=== PATIENT | female | born 1940 | race Caucasian/White ===

== ENCOUNTER → 2018-11-24 13:06 | Outpatient (CLI) | payer MEDICARE, OTHER, SELFPAY ==
--- NOTE | 2018-11-24 | DI.MG.S_ITS ---
UNILATERAL RIGHT DIGITAL SCREENING MAMMOGRAM 3D/2D WITH CAD POST MASTECTOMY: 11/24/2018 CLINICAL: Routine screening. Personal history of left breast cancer. Family history of breast cancer. Comparison is made to exams dated: 06/28/2017 mammogram, 06/20/2017 mammogram, 01/23/2015 mammogram, and 05/29/2013 mammogram - [facility]. The tissue of right breast is predominantly fatty. Current study was also evaluated with a Computer Aided Detection (CAD) system. There is a mole marker on the right breast. No significant masses, calcifications, or other findings are seen in the breast. There has been no significant interval change. IMPRESSION: NEGATIVE There is no mammographic evidence of malignancy. A 1 year screening mammogram is recommended. This exam was interpreted at Station ID: [id number]. NOTE: For mammograms, a report in lay terms will be sent to the patient. Approximately 15% of breast malignancies will not be visualized mammographically. In the management of a palpable breast mass, a negative mammogram must not discourage biopsy of a clinically suspicious lesion. Electronically Signed By: Chandu gant/gina:11/24/2018 20:13:18 letter sent: Normal Exam ACR BI-RADS Category 1: Negative 3341F
== END ==
PROVIDERS: Family Provider Family Medicine; PCP Family Medicine; Visit Provider Family Medicine
DX: Z12.31 Encounter for screening mammogram for malignant neoplasm of breast (principal); Z85.3 Personal history of malignant neoplasm of breast; Z80.3 Family history of malignant neoplasm of breast
CPT/HCPCS: 77063; 77067

== ENCOUNTER → 2020-03-17 10:21 | Outpatient (CLI) | payer MEDICARE, OTHER, SELFPAY ==
--- NOTE | 2020-03-17 10:45 | DI.MG.S_ITS ---
Patient Name: VIC MCGHEE date: 1940 Sex: F Attending Physician: Devonte Indications: Date: 03/17/2020 10:40 At the request of: LUIS ANGEL GIL Procedure: MM screening mammo unilat RT UNILATERAL RIGHT DIGITAL SCREENING MAMMOGRAM 3D/2D WITH CAD POST MASTECTOMY: 03/17/2020 CLINICAL: Routine screening. Personal history of left breast cancer. Family history of breast cancer. Comparison is made to exams dated: 11/24/2018 mammogram - [facility], 07/08/2017 mammogram, and 06/28/2017 mammogram - [facility]. The tissue of right breast is predominantly fatty. Current study was also evaluated with a Computer Aided Detection (CAD) system. No significant masses, calcifications, or other findings are seen in the breast. There has been no significant interval change. IMPRESSION: NEGATIVE There is no mammographic evidence of malignancy. A 1 year screening mammogram is recommended. This exam was interpreted at Station ID: [id number]. NOTE: For mammograms, a report in lay terms will be sent to the patient. Approximately 15% of breast malignancies will not be visualized mammographically. In the management of a palpable breast mass, a negative mammogram must not discourage biopsy of a clinically suspicious lesion. Electronically Signed By: Pato Camara M.D., jr/gina:03/17/2020 12:33:18 letter sent: Normal Exam ACR BI-RADS Category 1: Negative 3341F
== END ==
PROVIDERS: Family Provider Family Medicine; PCP Family Medicine; Referring Provider Family Medicine; Visit Provider Family Medicine
DX: Z12.31 Encounter for screening mammogram for malignant neoplasm of breast (principal); Z85.3 Personal history of malignant neoplasm of breast; Z80.3 Family history of malignant neoplasm of breast
CPT/HCPCS: 77063; 77067

== ENCOUNTER 2021-02-18 07:24 | Day surgery (SDC) | payer MEDICARE, OTHER, SELFPAY ==
--- NOTE | 2021-02-17 17:56 | PM.PREOP ---
Pre-operative Note COVID-19 COVID-19 status: Negative Interval Note History & Physical reviewed/Exam performed by Physician: Yes Changes to H&P: No H&P completed within 30 days and has changed as indicated here:: Fasting glucose is 127. Patient has redness of the left lower lid so will be given IV Cefazolin prior to surgery and placed on doxycycline 100 mg bid for 10 days. there is no discharge and can proceed with surgery.Rx to patient.
--- NOTE | 2021-02-18 07:39 | PM.OP.1 ---
Operative Date/Time/Diagnoses Date of procedure: 02/18/21 Time of procedure: 08:45 Procedure & Clinicians Procedure: Preoperative diagnoses: 1. Left advanced nuclear sclerotic and cortical cataract. 2. History of diabetic retinopathy with intravitreal Avastin injection. None since 2015. 3. Diabetes. 4. 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 5. History of breast cancer with mastectomy. 6. History of scalp melanoma status post removal Postoperative diagnoses: 1. Cataract removed by phacoemulsification with placement of posterior chamber intraocular lens. Procedure: Phacoemulsification with posterior chamber intraocular lens implant Surgeon: Raquel Harris MD Complications: None Specimen: None Implant: DIBOO+20.0 Blood loss: None Anesthesia: Retrobulbar with monitored standby Description of procedure: Patient presents with a complaint of decreased vision due to cataract which is affecting activities of daily living both distance and. The patient wants surgery to improve vision. She has traveled from [place] in and noted this morning that her left lower eyelid was slightly red. On exam is shows some internal lid inflammation no eye inflammation and no discharge. She is at risk to develop a show lazy and so she will be placed on antibiotics pre surgery and post surgery but appears safe to proceed. Her fasting glucose is 127. She understands the extra risk of surgery during the COVID-19 epidemic and has tested negative within 72 hours of the surgery for active virus. The patient was taken to the operating room and given IV sedation. A retrobulbar block consisting of 6 cc of 2% xylocaine without epinephrine mixed half and half with 0.5% Marcaine with 1 cc of hyaluronidase added is placed between the medial and lateral 1/3 of the inferior orbital rim. The eye is manually massaged for 30 sec, prepped using Betadine solution, and draped in the usual sterile fashion. Temporal approach was made, a 1 mm side-port incision was made 90? from the proposed clear corneal incision position. Phenylephrine 1.5% mixed with 1% xylocaine 0.2 cc was placed into the anterior chamber. Viscoat followed by Ajay was then placed. A 2.6 mm clear incision with a 2.6 mm blade was placed. A 360 degree capsulorrhexis style capsulotomy was then performed with a cystitome needle on a Healon. Hydrodelineation and hydrodissection were performed. The phacoemulsification unit is introduced, and sculpting notice used to groove the central lens. It is then removed in chopping mode. Epi nucleus is removed with epinuclear mode and irrigation aspiration was used to remove the peripheral cortex. The posterior capsule is polished. The intraocular lens is selected, inspected, power confirmed, and placed in the posterior chamber. The wound was stromally hydrated and tested for leaks, there was none and it was left sutureless. Vigamox 0.1 cc was placed into the anterior chamber. Kenalog 0.2 cc was placed in the superior subconjunctival space. A drop of antibiotic and was placed and the eye was patched and shielded. The patient was stable and returned to the recovery room in excellent condition. Dictated by: Raquel Harris MD Copy to: [facility] Same procedure as scheduled: Yes
[2021-02-18] MEDS: PROPARACAINE 0.5% OPHTH SOL 2 DROPS EYE-OP (07:53)
[2021-02-18] MEDS: CATARACT EYE COMPOUND (10 DROPS/SYRINGE) 3 DROPS EYE-OP ×2 (07:53→08:04)
--- NOTE | 2021-02-18 08:02 | SUR.PREOP ---
0757 Patient showed that she had awoken with redness and swelling under left eye. Dr Harris examined eye and determined that we can proceed with surgery. Drops initiated. Patient handed off to Karlene Harris RN
[2021-02-18 08:03] VITALS: BP 180/71; PULSE 66; RESP 14; TEMP 36.3; O2SAT 100; BMI 24.8
[2021-02-18] MEDS: CEFAZOLIN 1 GM VIAL 2 GM IV (09:00)
[2021-02-18] MEDS: CHONDROIDTIN/SOD HYALURONATE 1.05 ML SYRINGE INTRAOCULA (09:09)
[2021-02-18] MEDS: ERYTHROMYCIN OPHTH 1 GM OINT 1 APPLIC EYE-LEFT (09:09)
[2021-02-18] MEDS: MOXIFLOXACIN INJ 4 MG/0.8 ML VIAL 0.5 MG EYE-OP (09:10)
[2021-02-18] MEDS: HYALURONATE SODIUM 10 MG/ML SYRINGE INJ (09:10)
[2021-02-18] MEDS: PHENYLEPHRINE/LIDOCAINE VIAL (OR) 0.2 ML EYE-OP (09:10)
[2021-02-18] MEDS: TRIAMCINOLONE 50 MG/5 ML VIAL INJ (09:11)
[2021-02-18] MEDS: LIDOCAINE 2% INJ SDV 5 ML INJ (09:13)
[2021-02-18] MEDS: LIDOCAINE 2% 4 ML, BUPIVACAINE 0.5% (PF) 4 ML, HYALURONIDASE 150 UNIT INJ (09:13)
[2021-02-18] MEDS: BALANCED SALT IRRIG SOLN NO.2 500 ML, EPINEPHrine 1 MG IRR (09:15)
[2021-02-18 09:41] VITALS: BP 142/66; PULSE 58; RESP 14; TEMP 36.7; O2SAT 58
== END 2021-02-18 09:53 | disposition home or self-care (01) ==
LOC: OR 07:25
PROVIDERS: Family Provider Family Medicine; PCP Family Medicine; Referring Provider Ophthalmology; Visit Provider Ophthalmology
PROC: (CPT 66984; principal; 2021-02-18 08:45)
DX: H25.812 Combined forms of age-related cataract, left eye (principal); E11.9 Type 2 diabetes mellitus without complications
CPT/HCPCS: 66984; J0171; J0690; J2250; J2704; J3010; J3301; J3470

== ENCOUNTER → 2021-07-14 10:50 | Outpatient (CLI) | payer MEDICARE, OTHER, SELFPAY ==
--- NOTE | 2021-07-14 | DI.MG.S_ITS ---
UNILATERAL RIGHT DIGITAL SCREENING MAMMOGRAM 3D/2D WITH CAD: 07/14/2021 CLINICAL: Routine screening. Personal history of left breast cancer. Family history of breast cancer. Comparison is made to exams dated: 03/17/2020 mammogram, 11/24/2018 mammogram - [facility], and 07/08/2017 mammogram - [facility]. There are scattered fibroglandular elements in right breast. Current study was also evaluated with a Computer Aided Detection (CAD) system. No significant masses, calcifications, or other findings are seen in the breast. There has been no significant interval change. IMPRESSION: NEGATIVE There is no mammographic evidence of malignancy. A 1 year screening mammogram is recommended. This exam was interpreted at Station ID: [id number]. NOTE: For mammograms, a report in lay terms will be sent to the patient. Approximately 15% of breast malignancies will not be visualized mammographically. In the management of a palpable breast mass, a negative mammogram must not discourage biopsy of a clinically suspicious lesion. Electronically Signed By: Bronson fox/gina:07/14/2021 11:21:31 letter sent: Normal Exam ACR BI-RADS Category 1: Negative 3341F
== END ==
PROVIDERS: Family Provider Family Medicine; PCP Family Medicine; Referring Provider Family Medicine; Visit Provider Family Medicine
DX: Z12.31 Encounter for screening mammogram for malignant neoplasm of breast (principal); Z85.3 Personal history of malignant neoplasm of breast; Z80.3 Family history of malignant neoplasm of breast
CPT/HCPCS: 77063; 77067

== ENCOUNTER → 2021-12-07 13:51 | Outpatient (CLI) | payer MEDICARE, OTHER, SELFPAY ==
[2021-12-07 14:55] LABS: COVID19 -Nasal RAPID Negative (Negative)
== END ==
PROVIDERS: Family Provider Family Medicine; PCP Family Medicine; Visit Provider Family Medicine Sleep Medicine
DX: Z20.822 Contact with and (suspected) exposure to COVID-19 (principal)
CPT/HCPCS: 87635; C9803

== ENCOUNTER 2021-12-08 09:08 | Day surgery (SDC) | payer MEDICARE, OTHER, SELFPAY ==
[2021-12-03 08:39] VITALS: BMI 24.5
[2021-12-08] VITALS (12 sets, daily range): BP systolic 122–176; BP diastolic 33–76; PULSE 58–77; RESP 14–18; TEMP 36.4–37.2; O2SAT 91–98; BMI 24.5
[2021-12-08] MEDS: VANCOMYCIN 1,000 MG/200 ML PIGGYBACK 200 MG IV (09:00)
--- NOTE | 2021-12-08 09:32 | DI.RAD.S_ITS ---
PROCEDURE: XR KNEE LT 1TO2V INDICATIONS: left TKA TECHNIQUE: 2 view(s) of the knee acquired. COMPARISON: [facility], CR, XR KNEE 1 OR 2 VIEWS LEFT, 09/16/2021, 10:52. [facility], CR, XR KNEE ARTHRITIC SERIES BI, 09/30/2021, 14:08. FINDINGS: Bones: Patient is status post knee joint arthroplasty. Hardware components are in expected positions. Visualized bony structures are intact. Soft tissues: Overlying postoperative changes are noted. IMPRESSION: Normal postoperative examination. Dictated by: Carmelo Umana M.D. on 12/08/2021 at 14:20 Approved by: Carmelo Umana M.D. on 12/08/2021 at 14:20
[2021-12-08] MEDS: ACETAMINOPHEN 325 MG TABLET 975 MG PO (09:55)
[2021-12-08] MEDS: CELECOXIB 200 MG CAPSULE PO (09:56)
--- NOTE | 2021-12-08 11:56 | PM.PREOP ---
Pre-operative Note COVID-19 COVID-19 status: Negative Interval Note History & Physical reviewed/Exam performed by Physician: Yes Changes to H&P: No
--- NOTE | 2021-12-08 11:59 | PM.OP.1 ---
Operative Date/Time/Diagnoses Date of procedure: 12/08/21 Time of procedure: 12:05 Pre-op diagnosis: left knee OA Post-op diagnosis: same Procedure & Clinicians Procedure: Left total knee arthroplasty Same procedure as scheduled: Yes Indications: The patient has had progressively worsening left knee pain with radiographic changes consistent with arthritis. Non-operative management has failed and the patient has requested total knee replacement. The risks, benefits and alternatives to surgery were discussed with the patient prior to proceeding. Risks discussed included, but were not limited to, failure to relieve pain, stiffness, infection, nerve damage, deep venous thrombosis, pulmonary embolism, stroke, coma, heart attack, permanent paralysis and , as well as the potential need for eventual revision of the prosthetic. Surgeon: Alejandra Strong Mat Gauger: Isabell Gardner Anesthesia Type: General and Spinal Operative Notes Findings: Severe left knee osteoarthritis, good stability Closure Type: primary Specimen(s): none sent Prosthetic devices, grafts, tissues, transplants, or devices: Strong and Nephew [facility] BCS 2 size 5 femur, size 5 tibia, 35 mm patella, +9 poly Estimated Blood Loss (mL): 250 Blood products transfused: none Tourniquet time (min): 70 Procedure in detail: The patient was seen in the pre-operative area, where the patient identified the left knee as the operative site and this was marked with my initials. The patient received pre-operative antibiotics, and was taken to the operating room and placed on the operative table in the supine position. After satisfactory anesthesia, a motion and time study teacher out was performed. The left leg was encircled with a tourniquet about the proximal thigh, and the leg was prepared from the toes to the tourniquet with ChloroPrep in the usual fashion and draped through sterile drapes. The leg was elevated and exsanguinated with Eschmark bandage and the tourniquet inflated to [250] mmHg pressure. The knee was approached through an approximately 18 cm incision centered over the patella and carried into the knee through a medial parapatellar arthrotomy. A portion of the medial and lateral meniscus was resected. Soft tissue was carefully mobilized around the patella the patella was measured with a caliper. Bone was resected from the patella and the patellar height was reconstituted with up an appropriate sized patellar component. A cover was then placed on the patella. A small amount of additional medial and lateral meniscus was resected. The distal femur was cut at 5?. A [+2] cut was used. It looked like an appropriate distal femoral cut and the cut was made without difficulty. An extramedullary guide was used for the tibial cut. 10 mm was resected off the least affected side.The tibia was prepared. The rotation was assessed. The patient was placed in extension residual medial and lateral meniscus as well as any residual bone was carefully resected. [No] additional tibia was resected. Hemostasis was achieved especially posteriorly. Additional local was injected into the posterior capsule. The extension gap was assessed and additional releases for gap balancing were performed as necessary. It was checked with the gap airplane mechanic. The femoral component was trial was placed and the notch was finished. The rotation was assessed and the appropriate size femoral guide was placed on the distal femur and finishing cuts were made. There was no evidence of notching. The anterior, posterior and chamfer cuts were then made. The posterior osteophytes and soft tissues were then removed. The posterior capsule was injected with part of a mixture of 60 ml 0.25% Marcaine mixed with 20 ml Exparel for post operative pain control. The remainder of this mixture was injected into the capsule and subcutaneous tissues during cement curing. The tibial and femoral components were then placed and the knee placed through a range of motion. Range of motion was [0-130], with good stability throughout the range. The trials were then removed, and the tibia was finished. The bone was prepared with pulsatile lavage, and dried with a sponge. Cement was applied and the final prosthetics placed. Excess cement was removed during and after cement curing. A brief Betadine soak was performed. After confirming there was no extruded cement posteriorly, the final tibial insert was placed. The knee was copiously irrigated and the tourniquet deflated. Hemostasis was obtained with the bovie. A drain was placed and brought out superolaterally. The capsule was closed with interrupted nonabsorbable suture. The subcutaneous layer was closed with barbed sutures, and the skin with a running 3-0 V-Lock suture and Surgical glue. An Aquacel Ag dressing was applied and the patient was taken to recovery having tolerated the procedure well. Complications: none Post-operative Condition: stable Disposition: Acute Care Plan for aftercare: The patient will be maintained on a standard total knee replacement protocol with weight bearing as tolerated. The patient will receive aspirin and sequential compression devices for DVT prophylaxis. The patient will be discharged home when safe for the home environment.
[2021-12-08] MEDS: TRANEXAMIC ACID 1,000 MG VIAL 2000 MG INJ ×2 (12:25→14:01)
[2021-12-08] MEDS: CEFAZOLIN 2 GM/20 ML SYRINGE IV ×2 (12:25→21:48)
--- NOTE | 2021-12-08 12:39 | SUR.OPER ---
Supine on padded OR bed. Pillow under head, arms secured on padded armboards <90 degree abduction. Safety belt across torso. Non-operative leg secured with tape over blanket over lower leg. Operative leg secured in DeMayo/Anant/Nathe positioner. Foam padded brace at thigh of operative leg.
[2021-12-08] MEDS: BUPIVACAINE LIPOSOME 266 MG/20 ML VIAL INJ (12:45)
[2021-12-08] MEDS: SODIUM CHLORIDE IRRIG SOLUTION 250 ML, POVIDONE-IODINE SPONGE STICKS 1 APPLIC IRR (12:46)
[2021-12-08] MEDS: BUPIVACAINE 0.25% (PF) 60 ML, EPINEPHrine 0.3 MG INJ (12:46)
[2021-12-08] MEDS: LACTATED RINGERS 1,000 ML 42 ML IV (13:25)
[2021-12-08] MEDS: OXYCODONE IR 5 MG TABLET PO (14:39)
[2021-12-08] MEDS: LACTATED RINGERS 1,000 ML 100 ML IV ×2 (15:50→23:47)
[2021-12-08] MEDS: ACETAMINOPHEN 325 MG TABLET 650 MG PO ×2 (15:51→21:47)
[2021-12-08] MEDS: IBUPROFEN 400 MG TABLET PO ×2 (16:50→21:47)
[2021-12-08] MEDS: METFORMIN HCL 500 MG TABLET PO (16:50)
[2021-12-08] MEDS: DOCUSATE 100 MG CAPSULE PO (21:47)
[2021-12-08] MEDS: CLOBETASOL 0.05% CREAM 15 GM 1 APPLIC TOP (21:48)
[2021-12-08] MEDS: VIT C/E/ZN/COPPR/LUTEIN/ZEAXAN CAPSULE 1 CAP PO (21:48)
[2021-12-08] MEDS: EZETIMIBE 10 MG TABLET PO (21:48)
[2021-12-08] MEDS: ASPIRIN EC 81 MG TABLET PO (21:48)
[2021-12-09] MEDS: IBUPROFEN 400 MG TABLET PO ×3 (00:30→08:13)
[2021-12-09 02:00] VITALS: BP 128/42; PULSE 60; RESP 17; TEMP 36.6; O2SAT 95
[2021-12-09] MEDS: CEFAZOLIN 2 GM/20 ML SYRINGE IV (04:51)
[2021-12-09 04:59] LABS: Hematocrit 34.5 % (36-46); Hemoglobin 11.6 g/dL (12.0-16.0)
[2021-12-09 05:47] VITALS: BP 145/42; PULSE 89; RESP 17; TEMP 36.6; O2SAT 98
--- NOTE | 2021-12-09 07:46 | P.DS_ITS ---
History of Present Illness History of Present Illness Date Patient Seen: 12/09/21 Time Patient Seen: 07:46 Chief complaint: *OPB* LT TKA Narrative: Operative Date/Time/Diagnoses Date of procedure: 12/08/21 Time of procedure: 12:05 Pre-op diagnosis: left knee OA Post-op diagnosis: same Procedure & Clinicians Procedure: Left total knee arthroplasty Same procedure as scheduled: Yes Indications: The patient has had progressively worsening left knee pain with radiographic changes consistent with arthritis. Non-operative management has failed and the patient has requested total knee replacement. The risks, benefits and alter natives to surgery were discussed with the patient prior to proceeding. Risks discussed included, but were not limited to, failure to relieve pain, stiffness, infection, nerve damage, deep venous thrombosis, pulmonary embolism, stroke, coma, heart attack, permanent paralysis and , as well as the potential need for eventual revision of the prosthetic. Surgeon: Alejandra Strong Departmental Buyer: Isabell Gardner Anesthesia Type: General and Spinal Operative Notes Findings: Severe left knee osteoarthritis, good stability Closure Type: primary Specimen(s): none sent Prosthetic devices, grafts, tissues, transplants, or devices: Strong and Nephew [employer] BCS 2 size 5 femur, size 5 tibia, 35 mm patella, +9 poly Estimated Blood Loss (mL): 250 Blood products transfused: none Tourniquet time (min): 70 Discharge Providers Provider Discharge Date: 12/09/21 Primary care physician: Lester Whitney MD Consults: 12/08/21 09:32 Consult to Anesthesiology Routine Comment: Consulting Provider: Anesthesiologist Reason for consultation: Regional block for post operative pain control 12/08/21 15:05 Consult to Discharge Planning Routine Comment: Consult to Physical Therapy Evaluate & Treat Comment: Physician Instructions: postop TKA protocol Consult to Respiratory Therapy Evaluate & Treat Comment: Physician Instructions: Evaluate and treat Discharge provider: Melissa Perdomo PA-C Summary Hospital Course Discharge Diagnosis: s/p L TKA Hospital Course: Ms Davey's hospital course was unremarkable. On POD# 1 she was feeling well and wanted to go home. She was eating and voiding without difficulty or assistance. Her pain was well-controlled with oral medication. She was ev aluated by PT prior to discharge. Exam Vital Signs (past 8 hours): - 12/09/21 02:00 12/09/21 05:47 Temperature 97.8 F 97.9 F Pulse Rate 60 89 Respiratory Rate 17 17 Blood Pressure 128/42 L 145/42 H Pulse Oximetry 95 98 Oxygen Delivery Method Room Air Oxygen Flow Rate 0 Narrative Exam Narrative: 5/5 strength in hip flexors, quadriceps, hamstrings, DF, PF, EHL bilaterally. Sensation to light touch intact throughout BLE. Calves soft, compressible, nontender and without palpable cords or masses. Aquacel dressing CDI. Const General: cooperative and healthy appearing Orientation: alert, awake and oriented x3 Objective Labs Result Diagrams: 12/09/21 04:45 Labs: Laboratory Results - last 24 hr 12/09/21 04:45 Hgb 11.6 L Hct 34.5 L PFSH Medical History (Updated 12/03/21 @ 09:14 by Dianelys Cruz RN) Breast cancer, left (2017) History of Mohs micrographic surgery for skin cancer Macular degeneration of both eyes Osteoarthritis Skin cancer Surgical History (Updated 12/09/21 @ 07:42 by Melissa Perdomo PA-C) History of arthroplasty of right knee (~2015) Hx of bilateral cataract extraction Hx of left mastectomy (2017) Hx of tonsillectomy Family History (Updated 01/01/17 @ 00:00 by Conversion Provider) Brother Heart disease Father Heart disease Social History household members: spouse Smoking Status: Former smoker alcohol intake: current Discharge Assessment & Plan Assessment and Plan Assessment: S/p left total knee arthroplasty. Acute anemia due to expected surgical blood loss. Plan of Treatment: Discharge home with multimodal pain management, ASA 81 mg BID x 6 weeks for VTE prophylaxis, outpt PT. Discharge Plan Discharge Plan Patient Disposition: Home Discharge orders & Medications Discharge Orders: Discharge (Order); Ordered 12/09/21 Ordered By: Melissa Perdomo Prescriptions: New aspirin 81 mg Tablet,Delayed Release (Dr/Ec) 81 mg PO BID Qty: 1 0RF Rx Instructions: Take twice a day for 6 weeks to prevent blood clots. tramadol 50 mg tablet 50 mg PO Q4-6H PRN (Reason: pain) Qty: 90 0RF Continued PreserVision AREDS-2 1 EACH capsule 1 ea PO BID Qty: 0 0RF calcium carbonate-vitamin D3 [Oyster Shell Calcium-Vit D3] 1,250 MG/200 IU tablet 1 tab PO Q DAY Qty: 0 0RF metoprolol succinate 100 MG tablet extended release 24 hr 100 mg PO Q DAY Qty: 90 3RF metformin 500 mg Tablet 500 mg PO BID 0RF amlodipine 5 mg Tablet 5 mg PO DAILY 0RF ezetimibe 10 mg Tablet 10 mg PO BEDTIME 0RF clobetasol 0.05 % cream 1 greg Topical QDAYP PRN (Reason: Psoriasis) 0RF acetaminophen 325 mg Tablet 325 mg PO Q4-6H PRN (Reason: Pain) 0RF Follow up/Referrals: Alejandra Strong MD [Physician] - As previously scheduled (Follow up with Kenroy De Jesus PA-C, on 12/17/2021 @ 2:20 pm at [facility] office in [place]) Lester Whitney MD [Primary Care Provider] - Diet/Activity/Treatments Activity: Walk frequently! Cold/Heat Therapy: Ice to knee as needed for pain. Skin/Wound/Dressing Care Dressing: May shower. Leave Aquacel dressing in place until follow up appointment. Call office if dressing becomes saturated inside. No bathing or otherwise soaking incision. Visit Report/Discharge Packet Instructions: DI for Knee Replacement Stand Alone Forms: Surgery Discharge Discharge Data Primary Care Provider: Lester Whitney Attending Provider: Alejandra Strong Quality VTE Deep Vein Thrombosis/Pulmonary Embolism Present on Admission: No
[2021-12-09 08:16] VITALS: BP 151/46; PULSE 54
[2021-12-09] MEDS: VIT C/E/ZN/COPPR/LUTEIN/ZEAXAN CAPSULE 1 CAP PO (08:16)
[2021-12-09] MEDS: ASPIRIN EC 81 MG TABLET PO (08:16)
[2021-12-09] MEDS: AMLODIPINE 5 MG TABLET PO (08:16)
[2021-12-09] MEDS: METOPROLOL ER 50 MG TABLET 100 MG PO (08:16)
[2021-12-09] MEDS: ACETAMINOPHEN 325 MG TABLET 650 MG PO (08:16)
[2021-12-09] MEDS: METFORMIN HCL 500 MG TABLET PO (08:16)
[2021-12-09] MEDS: CALCIUM CARB/VIT D3 500/200 TABLET 1 EACH PO (08:16)
[2021-12-09 08:30] VITALS: BP 151/46; RESP 14; TEMP 36.3; O2SAT 97
[2021-12-09 09:45] VITALS: O2SAT 97
--- NOTE | 2021-12-09 10:55 | PT.IIE ---
Current Diagnoses Unilateral primary osteoarthritis, left knee (12/08/21) Presence of unspecified artificial knee joint (12/08/21) Surgery Performed Operation Date: 12/08/21 11:15 Actual Procedures p Total Knee Arthroplasty, left(Left) - Alejandra Strong MD Medical History (Last Updated 12/03/21 @ 09:14 by Dianelys Cruz RN) Breast cancer, left (2017) History of Mohs micrographic surgery for skin cancer Macular degeneration of both eyes Osteoarthritis Skin cancer Physical Therapy Inpatient Evaluation/Re-Eval M1 PT/OT-IP Prior Functional Status Start: 12/09/21 13:17 Freq: NEEDED Status: Discharge Protocol: Document 12/09/21 10:55 AB (Rec: 12/09/21 13:26 AB [email or web address]) Medical Review Prior Functional Status Medical History Reviewed Yes Communication able to make needs known Mobility and Gait pt stated that she is independent with all mobilities and ambulation without AD Social History Household Members spouse Living Arrangements House Number of Floors (Floors) One Floor Number of Stairs To Enter/Railing? 2 steps L rail ascending to enter the house Home Environment High Toilet,Tub/Shower Home Equipment Front Wheel Walker,Quad Cane, Straight Cane,Hand Held Shower ,Grab Bars Near Toilet,Grab Bars In Shower M2 PT-IP Current Condition Start: 12/09/21 13:17 Freq: NEEDED Status: Discharge Protocol: Document 12/09/21 10:55 AB (Rec: 12/09/21 13:26 AB [id number]) Physical Therapy Current Condition Current Condition Evaluation Date 12/09/21 Treatment Diagnosis s/p L TKA; difficulty in walking Onset Date 12/08/21 M3 PT-IP Subjective Start: 12/09/21 13:17 Freq: NEEDED Status: Discharge Protocol: Document 12/09/21 10:55 AB (Rec: 12/09/21 13:26 AB [email or web address]) Subjective Physical Therapy Visit Type Type Initial Evaluation Visit Start Time 10:55 Visit Stop Time 11:25 Total Visit Minutes 30 Number of [place] Visits 0 Physical Therapy Visit Comments Patient Comments pt is agreeable to do PT Therapy Pain Assessment Pain When Pain Assessed At Rest Pain Present Pain Present Pain Reported Location Left Knee Intensity 2 Scale Used Numeric (0 - 10) Pain Management Techniques Distraction,Modification of Treatment,Re-positioning, Timing of Activity with Medications M4 PT-IP Mobility and Gait Start: 12/09/21 13:17 Freq: NEEDED Status: Discharge Protocol: Document 12/09/21 10:55 AB (Rec: 12/09/21 13:26 AB [email or web address]) PT-Bed Mobility Assessment Supine to Sit Supine to Sit Standby Assistance PT-Transfer Assessment Sit to and From Stand Sit to and from Stand Standby Assistance,1 Person Assistance Equipment Transfer Assistive Device Gait Belt,Front Wheeled Walker Orthotic/Prosthetic Devices or Brace: No Transfers Transfer Destination Chair Transfer Technique Stand Step Pivot Transfer Ability Level of Assist Standby Assistance,Use of Upper Extremities Comments Mobility Comments pt completed supine to sit SBA . completed sit to stand SBA and ambulated to the toilet using FWW SBA. completed toileting SBA and ambulated out of the toilet using FWW SBA. able to maintain standing SBA while completing handwashing. ambulated in the hallway using fWW SBA and completed up/down steps using L rail SBA to cGA. pt ambulated back to the room and sat on her chair. positioned on chair. call light and table place within reach. Gait Assessment Gait Gait Assistance Required: Standby Assistance Distance (Feet) 125 Able to Maintain Weight Bearing Status Yes During Gait Assistive Devices Assistive Device Gait Belt,Front Wheeled Walker Orthotic/Prosthetic Devices or Brace: No Gait Deviations General Gait Pattern Antalgic,Decreased Stride Length,Decreased Feet Clearance Factors Limiting Gait Function Factors Limiting Gait Function Decreased Activity Tolerance, Decreased Strength,Limited Range of Motion,Pain,Poor Balance Stair Climbing Assessment Evaluation Level of Assist On Stairs Standby Assistance,Contact Guard Assistance Devices Stair Climbing Assistive Devices Left Railing Technique/Endurance Stair Climbing Direction Ascend and Descend Stair Climbing Technique Step to Step Number of Steps Climbed 3 Query Text: Stair Climbing Set # Repetitions (reps) 2 PT-Balance Assessment Sitting Balance and Reactions Static Sitting Balance Ability Good Dynamic Sitting Balance Ability Good Standing Balance and Reactions Static Standing Balance Ability Fair Dynamic Standing Balance Ability Fair Device Used FWW M5 PT-IP Objective Assessments Start: 12/09/21 13:17 Freq: NEEDED Status: Discharge Protocol: Document 12/09/21 10:55 AB (Rec: 12/09/21 13:26 AB [email or web address]) Orientation Orientation/Cognition Level of Alertness Alert Orientation Name,Place,Situation Language Function Ability No Deficits Noted Safety Awareness Decreased Safety Awareness Memory Description No Deficits Noted Gross Range of Motion Lower Extremity ROM Impairments L knee flexion: ~ 80 deg Strength Lower Extremity Strength Hip 4/5 Knee 4-/5 Coordination Assessment Gross Coordination Gross Coordination WNL Sensation Assessment Sensation Gross Sensation WNL Muscle Tone Muscle Tone WNL Yes M6 PT-IP Treatment Start: 12/09/21 13:17 Freq: NEEDED Status: Discharge Protocol: Document 12/09/21 10:55 AB (Rec: 12/09/21 13:26 AB [id number]) Physical Therapy Treatment Education Education Provided Precautions,Weight Bearing Status,Post-Op Packet,Safety M7 PT-IP Assessment and Plan Start: 12/09/21 13:17 Freq: NEEDED Status: Discharge Protocol: Document 12/09/21 10:55 AB (Rec: 12/09/21 13:26 AB [email or web address]) PT Summary Assessment and Plan Potential Rehabilitation Potential Good Status of Condition at Evaluation Stable Summary Impairments Pain,ROM,Strength,Balance, Coordination,Sensation,Tone, Cognition,Bed Mobility, Transfers,Gait,Activity Tolerance Assessment Summary pt requiring SBA to CGA with mobility using FWW. pt will have her spouse to assist her and has outpt PT set up. pt may go home when medically stable. Goals Bed Mobility Goal Independent Transfer Goal Independent,Front Wheeled Walker Gait Goal Independent,Front Wheel Walker Gait Distance 200 Other Goals up/down 2 steps L rail mod I Days to Meet Goals 3 Frequency of Treatment Frequency Of Treatment Twice a Day Treatment Plan Physical Therapy Treatment Plan Bed Mobility Training,Transfer Training,Gait Training, Therapeutic Exercise,Balance Retraining,Post Op Education, Discharge Planning,Hot or Cold Pack,Neuromuscular Re-ed, Coordination Retraining,Manual Therapy Weight Bearing Status Weight Bearing Status Weight Bear as Tolerated Allowed Weight Bearing Amount (enter % LLE WBAT or #) (%) Recommendations To Nursing Amount of Assist Needed Standby Assistance Discharge Recommendations PT Discharge Recommendations Home with Assistance, Outpatient PT Transportation Needs at Discharge Private Vehicle
[2021-12-09 12:14] VITALS: BP 147/49; PULSE 56; RESP 18; TEMP 36.7; O2SAT 98
--- NOTE | 2021-12-09 12:24 | PC.NURSE ---
Addendum entered by Steve Galo R.N. 12/09/21 12:53: patient escorted out by staff via wheelchair. VSS. Patient left in stable condition. Original Note: Patient teaching done at bedside with patient and spouse. All questions and concerns were addressed, RX's sent to pharm [facility]. Patient's iv was d/c'd, wilian. well. Patient wishes to eat lunch and then leave. Priority loading pass given for alyce.
== END 2021-12-09 12:45 | disposition home or self-care (01) ==
LOC: OR 09:11 → AC 09:14
PROVIDERS: Family Provider Family Medicine; PCP Family Medicine; Referring Provider Orthopaedic Surgery; Visit Provider Orthopaedic Surgery
PROC: 0SRD0JZ Replacement of Left Knee Joint with Synthetic Substitute, Open Approach (ICD-10-PCS; CPT 27447; principal; 2021-12-08 11:15)
DX: M17.12 Unilateral primary osteoarthritis, left knee (principal); E11.9 Type 2 diabetes mellitus without complications; I10 Essential (primary) hypertension; Z79.84 Long term (current) use of oral hypoglycemic drugs
CPT/HCPCS: 27447; 36415; 73560; 82962; 85014; 85018; 94762; 97161; C1776; C1713; C9290; J0171; J0690; J1100; J2250; J2274; J2405; J2704; J3010

== ENCOUNTER → 2022-06-22 12:38 | Outpatient (CLI) | payer MEDICARE, OTHER, SELFPAY ==
[2021-12-08 15:27] VITALS: BMI 24.5
[2022-06-22 15:54] LABS: BUN Creatinine Ratio 19.1 (6-22); Blood Urea Nitrogen 29 mg/dL (7-17); Calcium 9.9 mg/dL (8.4-10.2); Carbon Dioxide 25 mmol/L (22-32); Chloride 105 mmol/L (98-107); Estimated Glomerular Filt Rate 34 mL/min (>60); Glucose 71 mg/dL (80-110); HEMOLYSIS < 15 (0-50); Sodium 140 mmol/L (137-145)
== END ==
PROVIDERS: Family Provider Family Medicine; PCP Family Medicine; Referring Provider Nurse Practitioner Family; Visit Provider Nurse Practitioner Family
DX: I25.5 Ischemic cardiomyopathy (principal); I10 Essential (primary) hypertension
CPT/HCPCS: 36415; 80048

== ENCOUNTER → 2022-10-05 12:03 | Outpatient (CLI) | payer MEDICARE, SELFPAY ==
[2021-12-08 15:27] VITALS: BMI 24.5
--- NOTE | 2022-10-05 12:37 | DI.ECHO.S_ITS ---
Echocardiogram Report :Name: VIC MCGHEE :Reason For Study: ISCHEMIC CARDIOMYOPATHY : :Ordering Physician: JAYA, : :DOMINIQUE HORN Performed By: Sindi Hernandez : :Referring: DOMINIQUE [place] : + + Interpretation Summary The ejection fraction is estimated to be 60-65%. Left ventricular wall motion is normal. There is no significant valvular heart disease. Procedure: A two-dimensional transthoracic echocardiogram with color flow and Doppler was performed in limited views only to assess wall motion and ejection fraction.. The study quality was technically adequate. Comparison is made with the echocardiogram of 05/07/2022. The patient was in sinus rhythm with heart rates between 67-74 bpm during the exam. Left Ventricle: The left ventricle is normal in size and wall thickness. The ejection fraction is estimated to be 60-65%. Left ventricular wall motion is normal. Right Ventricle: The right ventricle is normal in size and function. Mitral Valve: There is mild mitral annular calcification. Great Vessels: The IVC is of normal diameter and collapses greater than 50% with a sniff. This suggests a low right atrial pressure of 3 mm Hg. Pericardium/ Pleura There is no pericardial effusion. There is no pleural effusion. MMode/2D Measurements & Calculations LVIDd: 3.8 cm IVC diam: 1.5 cm LVIDs: 2.6 cm FS: 31.1 % IVSd: 0.86 cm LVPWd: 1.0 cm LV adamson. diameter/BSA (cm/m^2): 2.2 LV sys. diameter/BSA (cm/m^2): 1.5 RVD1 (basal): 3.1 cm RVD2 (mid): 2.8 cm TAPSE: 1.7 cm Reading Physician:01:41 PM
== END ==
PROVIDERS: Family Provider Family Medicine; PCP Family Medicine; Referring Provider Nurse Practitioner Family; Visit Provider Nurse Practitioner Family
DX: I25.5 Ischemic cardiomyopathy (principal); Z95.5 Presence of coronary angioplasty implant and graft; I34.81 Nonrheumatic mitral (valve) annulus calcification
CPT/HCPCS: 93307

== ENCOUNTER → 2023-02-09 08:39 | Outpatient (CLI) | payer MEDICARE, SELFPAY ==
[2021-12-08 15:27] VITALS: BMI 24.5
[2023-02-09 10:28] LABS: Alanine Aminotransferase 16 IU/L (<35); Albumin 4.1 g/dL (3.5-5.0); Albumin Globulin Ratio 1.4 (1.0-2.8); Alkaline Phosphatase 55 U/L (38-126); Aspartate Aminotransferase 17 IU/L (14-36); BUN Creatinine Ratio 24.2 (6-22); Bilirubin Total 0.4 mg/dL (0.2-1.3); Blood Urea Nitrogen 31 mg/dL (7-17); Calcium 9.2 mg/dL (8.4-10.2); Carbon Dioxide 23 mmol/L (22-32); Chloride 109 mmol/L (98-107); Cholesterol 154 mg/dL (140-199); Estimated Glomerular Filt Rate 42 mL/min (>60); Globulin 2.9 g/dL (1.7-4.1); Glucose 114 mg/dL (80-110); HDL Cholesterol 50 mg/dL (40-60); HEMOLYSIS < 15 (0-50); LDL Cholesterol Calculated 74 mg/dL (<100); Potassium 4.7 mmol/L (3.4-5.1); Sodium 140 mmol/L (137-145); Triglycerides 148 mg/dL (35-150)
== END ==
PROVIDERS: Family Provider Family Medicine; PCP Family Medicine; Referring Provider Internal Medicine Cardiovascular Disease; Visit Provider Internal Medicine Cardiovascular Disease
DX: E78.5 Hyperlipidemia, unspecified (principal)
CPT/HCPCS: 36415; 80053; 80061

== ENCOUNTER → 2023-08-05 13:46 | Outpatient (CLI) | payer MEDICARE, SELFPAY ==
[2021-12-08 15:27] VITALS: BMI 24.5
--- NOTE | 2023-08-05 | DI.MG.S_ITS ---
UNILATERAL RIGHT DIGITAL SCREENING MAMMOGRAM 3D/2D WITH CAD POST MASTECTOMY: 08/05/2023 CLINICAL: Routine screening. Personal history of left breast cancer. Family history of breast cancer. Comparison is made to exams dated: 07/14/2021 mammogram, 03/17/2020 mammogram, and 11/24/2018 mammogram - [facility]. There are scattered areas of fibroglandular density in the right breast (category b / 25%-50% glandular tissue). Current study was also evaluated with a Computer Aided Detection (CAD) system. No significant masses, calcifications, or other findings are seen in the breast. IMPRESSION: NEGATIVE There is no mammographic evidence of malignancy. A 1 year screening mammogram is recommended. This exam was interpreted at Station ID: [id number]. NOTE: For mammograms, a report in lay terms will be sent to the patient. Approximately 15% of breast malignancies will not be visualized mammographically. In the management of a palpable breast mass, a negative mammogram must not discourage biopsy of a clinically suspicious lesion. Electronically Signed By: Joslyn High M.D., PH.D eb/penrad:08/06/2023 10:58:59 letter sent: Normal Exam ACR BI-RADS Category 1: Negative [id number]
== END ==
PROVIDERS: Family Provider Family Medicine; PCP Family Medicine; Referring Provider Family Medicine; Visit Provider Family Medicine
DX: Z12.31 Encounter for screening mammogram for malignant neoplasm of breast (principal); Z85.3 Personal history of malignant neoplasm of breast; Z80.3 Family history of malignant neoplasm of breast
CPT/HCPCS: 77063; 77067

== ENCOUNTER → 2023-11-01 13:15 | Outpatient (CLI) | payer MEDICARE, SELFPAY ==
[2021-12-08 15:27] VITALS: BMI 24.5
[2023-11-01 14:38] LABS: Alanine Aminotransferase 18 IU/L (<35); Albumin 4.4 g/dL (3.5-5.0); Albumin Globulin Ratio 1.2 (1.0-2.8); Alkaline Phosphatase 61 U/L (38-126); Aspartate Aminotransferase 22 IU/L (14-36); BUN Creatinine Ratio 30.5 (6-22); Bilirubin Total 0.5 mg/dL (0.2-1.3); Blood Urea Nitrogen 39 mg/dL (7-17); Calcium 10.1 mg/dL (8.4-10.2); Carbon Dioxide 22 mmol/L (22-32); Chloride 107 mmol/L (98-107); Cholesterol 214 mg/dL (140-199); Estimated Glomerular Filt Rate 41 mL/min (>60); Globulin 3.7 g/dL (1.7-4.1); Glucose 71 mg/dL (80-110); HDL Cholesterol 48 mg/dL (40-60); HEMOLYSIS < 15 (0-50); LDL Cholesterol Calculated 123 mg/dL (<100); Potassium 4.3 mmol/L (3.4-5.1); Sodium 140 mmol/L (137-145); Total Protein 8.1 g/dL (6.3-8.2); Triglycerides 217 mg/dL (35-150)
== END ==
PROVIDERS: Family Provider Family Medicine; PCP Family Medicine; Referring Provider Internal Medicine Cardiovascular Disease; Visit Provider Internal Medicine Cardiovascular Disease
DX: E78.5 Hyperlipidemia, unspecified (principal)
CPT/HCPCS: 36415; 80053; 80061

== ENCOUNTER → 2024-07-02 09:35 | Outpatient (CLI) | payer MEDICARE, SELFPAY ==
[2021-12-08 15:27] VITALS: BMI 24.5
--- NOTE | 2024-07-02 09:37 | DI.US.S_ITS ---
PROCEDURE: US CAROTID DOPPLER BI INDICATIONS: BI CAROTID ARTERY STENOSIS TECHNIQUE: Color and pulse Doppler interrogation was performed of both carotid systems, with image documentation and velocity measurements. COMPARISON: [facility], US, US CAROTID BILATERAL, 03/02/2023, 15:49. FINDINGS: Stenosis calculations are based on SRU (Society of Radiologists in Ultrasound) criteria. The flow velocities and the arterial waveforms are normal within both carotid arterial systems. Atherosclerotic plaque is seen on both sides. The estimated degree of internal carotid artery stenosis is less than 50%. Antegrade flow is confirmed within both vertebral arteries. The right brachial blood pressure measures 193/78 and the left brachial blood pressure measures 177/76. IMPRESSION: By velocity criteria, the carotid stenoses are now regarded to be less than 50%. Arterial hypertension measured at the time of this study. Dictated by: Carmelo Umana M.D. on 07/02/2024 at 11:36 Approved by: Carmelo Umana M.D. on 07/02/2024 at 11:37
== END ==
PROVIDERS: Family Provider Family Medicine; PCP Family Medicine; Referring Provider Internal Medicine Cardiovascular Disease; Visit Provider Internal Medicine Cardiovascular Disease
DX: I65.23 Occlusion and stenosis of bilateral carotid arteries (principal)
CPT/HCPCS: 93880

== ENCOUNTER → 2024-12-07 08:51 | Outpatient (CLI) | payer MEDICARE, SELFPAY ==
[2021-12-08 15:27] VITALS: BMI 24.5
--- NOTE | 2024-12-07 08:52 | DI.ECHO.S_ITS ---
[place] +---------+ Hospital : : [id number] : : [place] : : [id number] : : Phone: [phone] Echocardiogram Report + + :Name: VIC MCGHEE Study Date: 12/07/2024 Height: 66 in : :[facility] ReadingLocation: Weight: 135 lb : : Gender: Female BSA: 1.7 m2 : :: 1940 Age: 84 yrs BP: 165/67 mmHg: :Reason For Study: AORTIC VALVE STENOSIS : :Ordering Physician: LICO, : :BRYN Performed By: Pato Banks : :Referring: BRYN BARFIELD : + + Interpretation Summary The left ventricle is normal in size. The left ventricular ejection fraction is normal. Left ventricular ejection fraction is estimated to be 65 +/- 5%. The right ventricle is normal in size and function. The aortic valve is heavily calcified. The peak aortic velocity is 3.49 m/sec. The aortic valve mean gradient is 31.5 mmHg. The calculated aortic valve area is 0.8 cm2. The peak aortic velocity on the previous exam was 2.38 m/sec. sev ratio: 0.28, stroke-volume index 53 mL/mA?. There is moderate to severe aortic stenosis. Compared to the prior echo study, there has been an increase in the severity of aortic stenosis. There is aortic root sclerosis/calcification. Procedure: A two-dimensional transthoracic echocardiogram with color flow and Doppler was performed. The study quality was technically good. Comparison is made with the echocardiogram of 10/05/2022. The patient was in sinus bradycardia with heart rates between 54-58 bpm during the exam. Left Ventricle: The left ventricle is normal in size. There is normal left ventricular wall thickness. There is no thrombus. The left ventricular ejection fraction is normal. Left ventricular ejection fraction is estimated to be 65 +/- 5%. There are no focal wall motion abnormalities. MV E/A: 0.82 Med Peak E' Oziel: 4.6 cm/sec E/E' med: 20.2. Right Ventricle: The right ventricle is normal in size and function. Atria: The left atrium is mildly dilated. The left atrium has mildly increased in size since the prior echo exam. Right atrial size is normal. There is no Doppler evidence for an interatrial shunt. Mitral Valve: There is moderate to severe mitral annular calcification. The mitral valve chordae are thickened and/or calcified. No significant mitral valve stenosis. There is mild mitral regurgitation. Aortic Valve: The aortic valve is heavily calcified. The aortic valve is trileaflet. There is moderate to severe aortic stenosis. The peak aortic velocity is 3.49 m/sec. The aortic valve mean gradient is 31.5 mmHg. The calculated aortic valve area is 0.8 cm2. The peak aortic velocity on the previous exam was 2.38 m/sec. Compared to the prior echo study, there has been an increase in the severity of aortic stenosis. No aortic regurgitation is present. Tricuspid Valve: The tricuspid valve leaflets are thin and pliable. There is trace tricuspid regurgitation. The right ventricular systolic pressure is estimated to be at least 29 mmHg based on an estimated right atrial pressure of 3 mm Hg. Pulmonic Valve: The pulmonic valve is not well seen, but is grossly normal. There is no pulmonic valvular regurgitation. Great Vessels: The aortic root is normal size. There is aortic root sclerosis/calcification. The dimensions of the ascending aorta are normal. The pulmonary artery is normal size. The IVC is of normal diameter and collapses greater than 50% with a sniff. This suggests a low right atrial pressure of 3 mm Hg. Pericardium/ Pleura There is no pericardial effusion. There is no pleural effusion. MMode/2D Measurements & Calculations LVIDd: 4.4 cm LVOT diam: 1.9 cm LVIDs: 2.9 cm Ao root diam: 2.9 cm FS: 34.1 % asc Aorta Diam: 3.4 cm EPSS: 0.73 cm IVSd: 0.89 cm LVPWd: 1.0 cm LV adamson. diameter/BSA (cm/m^2): 2.6 LV sys. diameter/BSA (cm/m^2): 1.7 LA A2 area: 20.0 cm2 RA long axis: 3.5 cm LA A4 area: 21.7 cm2 RA area: 9.8 cm2 LA length (vol): 5.5 cm RA vol: 23.3 ml LA vol: 66.4 ml RA : 13.7 ml/m2 LA vol index: 39.2 ml/m2 IVC diam: 1.9 cm RVD1 (basal): 3.3 cm RVD2 (mid): 3.1 cm TAPSE: 2.1 cm Doppler Measurements & Calculations Ao V2 max: 348.9 cm/sec LVOT Max Oziel: 105.8 cm/sec Ao V2 mean: 272.3 cm/sec LV V1 max P.5 mmHg Ao max P.7 mmHg LV V1 VTI: 32.2 cm Ao mean P.5 mmHg ELIOT(I,D): 0.79 cm2 Ao V2 VTI: 114.0 cm ELIOT(V,D): 0.85 cm2 sev ratio: 0.28 ELIOT indexed to BSA (cm^2/m^2): 0.47 MV E max oziel: 92.4 cm/sec TR max oziel: 253.0 cm/sec MV A max oziel: 113.0 cm/sec TR max P.6 mmHg MV E/A: 0.82 PA V2 max: 78.3 cm/sec Med Peak E' Oziel: 4.6 cm/sec PA V2 mean: 56.7 cm/sec E/E' med: 20.2 PA mean P.4 mmHg Lat Peak E' Oziel: 6.7 cm/sec PA pr(Accel): 37.9 mmHg E/E' lat: 13.9 E/e' average: 17.0 MV dec time: 0.20 sec SV(LVOT): 90.5 ml Reading Physician:04:11 PM
== END ==
PROVIDERS: Family Provider Family Medicine; PCP Family Medicine; Referring Provider Internal Medicine Cardiovascular Disease; Visit Provider Internal Medicine Cardiovascular Disease
DX: I08.0 Rheumatic disorders of both mitral and aortic valves (principal)
CPT/HCPCS: 93306

== ENCOUNTER → 2024-12-07 12:46 | Outpatient (CLI) | payer MEDICARE, SELFPAY ==
[2021-12-08 15:27] VITALS: BMI 24.5
--- NOTE | 2024-12-07 12:47 | DI.MG.S_ITS ---
MM screening mammo unilat RT: 12/07/2024. BI-RADS: 1 CLINICAL: 84-year old female for right screening mammogram. No Tyrer-Cuzick risk score calculation due to the patient's personal history of breast cancer. Patient reports a history of left breast carcinoma. Status-post left mastectomy. Current reported family history of breast cancer: sister. PRIOR EXAMS 08/05/2023, 07/14/2021, 03/17/2020, 11/24/2018. MAMMOGRAPHY TECHNIQUE: 2D and 3D (tomosynthesis) digital mammographic views obtained, with additional images as needed for full coverage. Current study was also evaluated with a Computer Aided Detection (CAD) system. DENSITY Right: B. There are scattered areas of fibroglandular density. MAMMOGRAPHY FINDINGS Right: No suspicious mass, asymmetry, microcalcification, or other abnormality seen. No significant change from comparison. IMPRESSION: Right * No evidence of malignancy. RECOMMENDATIONS Right * Annual screening mammography. OVERALL ASSESSMENT CATEGORY BI-RADS-1: Negative. The [employer] recommends annual screening mammography beginning at age 40 for women with average risk of breast cancer. ELECTRONICALLY SIGNED: Eli Daly M.D. on 12/10/2024 at 08:43:54 AM PT Interpreting Station ID: [id number]
== END ==
PROVIDERS: Family Provider Family Medicine; PCP Family Medicine; Referring Provider Family Medicine; Visit Provider Family Medicine
DX: Z12.31 Encounter for screening mammogram for malignant neoplasm of breast (principal); Z85.3 Personal history of malignant neoplasm of breast; Z80.3 Family history of malignant neoplasm of breast; Z90.12 Acquired absence of left breast and nipple; R92.321 Mammographic fibroglandular density, right breast
CPT/HCPCS: 77063; 77067

== ENCOUNTER 2025-02-05 10:08 | Emergency (ER) | payer MEDICARE, SELFPAY ==
[2021-12-08 15:27] VITALS: BMI 24.5
[2025-02-05] VITALS (16 sets, daily range): BP systolic 134–184; BP diastolic 57–70; PULSE 46–96; RESP 17–30; TEMP 36.6; O2SAT 96–100; BMI 21.7
[2025-02-05 10:51] LABS: Add Manual Diff / Slide Review NO; Basophils Absolute Auto 100 /uL (0-100); Basophils Percent Auto 0.8 % (0-2); Eosinophils Absolute Auto 200 /uL (0-450); Eosinophils Percent Auto 2.2 % (2-4); Hematocrit 30.2 % (36-46); Lymphocytes Absolute Auto 1500 /uL (1100-4500); Lymphocytes Percent Auto 19.6 % (25-40); Mean Corpuscular HGB Conc 33.1 % (30-36); Mean Corpuscular Volume 90.5 fL (80-100); Monocytes Absolute Auto 600 /uL (0-900); Monocytes Percent Auto 8.1 % (3-14); Neutrophils Absolute Auto 5500 /uL (1500-7000); Neutrophils Percent Auto 69.3 % (50-75); Platelet Count 198 X10^3/uL (150-400); Red Blood Cell Count 3.34 X10^6/uL (4.0-5.2); Red Cell Distribution Width 14.5 % (11.6-14.8); White Blood Cell Count 7.9 X10^3/uL (4.5-11.0)
--- NOTE | 2025-02-05 10:58 | ED.GIBLEED ---
HPI - GI Bleed General Chief complaint: GI Bleed Stated complaint: Rectal bleeding X 14 days Time Seen by Provider: 02/05/25 10:34 Source: patient Mode of arrival: Family Vehicle History of Present Illness HPI Narrative: Patient is an 84-year-old female with a history of hypertension, hyperlipidemia, type 2 diabetes, previous knee replacement, and a known weak heart valve who presents with a two-week history of intermittent hematuria and new-onset rectal bleeding. She initially noticed blood in her urine, which was confirmed on urinalysis at a clinic and treated with a five-day course of antibiotics, after which the hematuria resolved. On Tuesday, she observed bright red blood clots in the toilet, separate from the stool, and since then has had minimal bowel movements with occasional blood on the tissue, described as darker, dried blood rather than bright red. She denies abdominal pain but reports a general sense of discomfort and decreased energy, with occasional lightheadedness when standing. She continues to eat and drink normally. She has macular degeneration, which may limit her ability to accurately assess the color and amount of blood. She is not currently taking aspirin or other blood thinners. She [place] on [address] and does not have an established primary care provider due to recent provider departure. Pertinent ROS: Positive for hematuria (resolved), rectal bleeding, decreased energy, occasional lightheadedness, and general discomfort. Denies abdominal pain, black stools, and ongoing hematuria. Eating and drinking without difficulty. Medications: Antihypertensive, statin; not currently taking aspirin. Allergies: Not mentioned. Past Medical History: Hypertension, hyperlipidemia, type 2 diabetes, previous knee replacement, macular degeneration, weak heart valve. Surgical History: Knee replacement. Related Data Home Medications ?Medication ?Instructions ?Recorded ?Confirmed calcium 500 mg (as 1 tab PO Q DAY ##0 06/08/16 12/08/21 carbonate)-vitamin D3 5 mcg (200 unit) tablet (Oyster Shell Calcium-Vitamin D3) vit C 250 mg-vit E 90 mg-zinc 40 1 ea PO BID ##0 06/08/16 12/08/21 mg-copper 1 vs-[id number]-[id number] capsule (PreserVision AREDS-2) acetaminophen 325 mg tablet 325 mg PO Q4-6H PRN Pain 12/03/21 12/08/21 amlodipine 5 mg tablet 5 mg PO DAILY 12/03/21 12/08/21 clobetasol 0.05 % topical cream 1 greg topical QDAYP PRN Psoriasis 12/03/21 12/08/21 ezetimibe 10 mg tablet 10 mg PO BEDTIME 12/03/21 12/08/21 metformin 500 mg tablet 500 mg PO BID 12/03/21 12/08/21 Previous Rx's ?Medication ?Instructions ?Recorded metoprolol succinate 100 mg 100 mg PO Q DAY ##90 06/08/16 tablet,extended release 24 hr aspirin 81 mg tablet,delayed 81 mg PO BID #1 tab 12/09/21 release tramadol 50 mg tablet 50 mg PO Q4-6H PRN pain #90 tabs 12/09/21 Allergies Allergy/AdvReac Type Severity Reaction Status Date / Time pravastatin Allergy Intermediate HIVES Verified 02/05/25 10:31 lisinopril Allergy Mild pruritis, Verified 02/05/25 10:31 rash hydrochlorothiazide AdvReac Mild SUN Verified 02/05/25 10:31 SENSITIVITY Patient History Medical History (Updated 02/05/25 @ 13:18 by ) Skin cancer History of Mohs micrographic surgery for skin cancer Osteoarthritis Macular degeneration of both eyes Breast cancer, left (2017) Surgical History (Updated 12/09/21 @ 07:42 by Melissa Perdomo PA-C) Hx of tonsillectomy Hx of bilateral cataract extraction Hx of left mastectomy (2017) History of arthroplasty of right knee (~2015) Family History (Updated 01/01/17 @ 00:00 by Conversion Provider) Brother Heart disease Father Heart disease Social History household members: spouse alcohol intake: current alcohol intake frequency: a few times a week Exam Narrative Exam Narrative: General: Well appearing, well nourished, in no distress. Skin: Good turgor, no rash, unusual bruising or prominent lesions Head: Normocephalic, atraumatic HEENT: Conjunctiva clear, EOM intact, PERRL, Mucous membranes moist. Neck: Supple, normal ROM Heart: Regular rate and rhythm, no murmur or gallop or rubs Lungs: Clear to auscultation. No rales rhonchi or wheezes. Abdomen: Soft and nontender. Bowel sounds normal. No mass or hernia Back: Spine normal without deformity or tenderness, no CVA tenderness Extremities: No deformities, edema. peripheral pulses intact Neurologic: CN 2-12 normal. Normal sensation and motor exam. Psychiatric: Oriented X3. normal mood and affect. Initial Vital Signs Initial Vital Signs: Vital Signs Pulse Rate 55 L 02/05/25 10:23 Pulse Oximetry 100 02/05/25 10:23 Course Orders Ordered: Discontinued Medications Ondansetron HCl (Ondansetron 4 Mg/2 Ml Inj) 4 mg IV NOW PRN PRN Reason: Nausea And Vomiting Ondansetron HCl (Ondansetron 4 Mg Odt) 4 mg PO NOW PRN PRN Reason: Nausea And Vomiting Vital Signs Vital signs: Vital Signs - 8 hr 02/05/25 12:21 02/05/25 12:21 02/05/25 12:30 Pulse Rate 56 L 49 L Respiratory Rate 23 Blood Pressure 184/70 H Pulse Oximetry 100 100 Oxygen Delivery Method 02/05/25 12:31 02/05/25 12:31 02/05/25 13:00 Pulse Rate 48 L 47 L Respiratory Rate Blood Pressure 153/65 H Pulse Oximetry 100 99 Oxygen Delivery Method 02/05/25 13:01 02/05/25 13:01 02/05/25 13:30 Pulse Rate 46 L 51 L Respiratory Rate 18 Blood Pressure 158/60 H Pulse Oximetry 97 99 Oxygen Delivery Method 02/05/25 13:31 02/05/25 13:31 Pulse Rate 52 L Respiratory Rate Blood Pressure 155/64 H Pulse Oximetry 100 Oxygen Delivery Method Room Air MDM - GI Bleed Lab Data Lab results narrative: I reviewed patient's labs that show a hemoglobin of 10, no significant leukocytosis, no significant thrombocytopenia requiring intervention. Patient has mildly elevated BUN and creatinine, unclear baseline. 02/05/25 10:30 02/05/25 10:30 Labs: Lab Results 02/05/25 Range/Units 10:30 WBC 7.9 (4.5-11.0) X10^3/uL RBC 3.34 L (4.0-5.2) X10^6/uL Hgb 10.0 L (12.0-16.0) g/dL Hct 30.2 L (36-46) % MCV 90.5 (80-100) fL MCH 30.0 (26-34) PG MCHC 33.1 (30-36) % RDW 14.5 (11.6-14.8) % Plt Count 198 (150-400) X10^3/uL Neut % (Auto) 69.3 (50-75) % Lymph % (Auto) 19.6 L (25-40) % [place] % (Auto) 8.1 (3-14) % Eos % (Auto) 2.2 (2-4) % Baso % (Auto) 0.8 (0-2) % Neut # (Auto) 5500 (8085-3228) /uL Lymph # (Auto) 1500 (5850-1256) /uL [place] # (Auto) 600 (0-900) /uL Eos # (Auto) 200 (0-450) /uL Baso # (Auto) 100 (0-100) /uL PT 11.7 (9.4-12.5) SECONDS INR 1.0 (0.9-1.3) APTT 31 (25.1-36.5) SECONDS Sodium 139 (137-145) mmol/L Potassium 4.6 (3.4-5.1) mmol/L Chloride 105 (98-107) mmol/L Carbon Dioxide 25 (22-32) mmol/L BUN 24 H (7-17) mg/dL Creatinine 1.24 H (0.52-1.04) mg/dL Estimated GFR 43 L (>60) mL/min BUN/Creatinine Ratio 19.4 (6-22) Glucose 119 H (70-99) mg/dL Calcium 9.2 (8.4-10.2) mg/dL Total Bilirubin 0.6 (0.2-1.3) mg/dL AST 19 (14-36) IU/L ALT 15 (<35) IU/L Alkaline Phosphatase 60 (38-126) U/L Total Protein 6.9 (6.3-8.2) g/dL Albumin 4.1 (3.5-5.0) g/dL Globulin 2.8 (1.7-4.1) g/dL Albumin/Globulin Ratio 1.5 (1.0-2.8) Blood Type A Positive Antibody Screen Negative Point of Care Testing Stool Occult Blood Positive ECG Data Interpretation: On independent evaluation of patient's EKG I see a normal sinus rhythm with a rate of 50, FL interval is 172 QTC is 413 I see no signs of significant ST segment elevation, depression or other significant abnormalities requiring Cardiology consultation or meeting STEMI criteria MDM Narrative Medical decision making narrative: INITIAL EVALUATION AND PLAN: - Rectal bleeding, history of recent hematuria - Plan: - Obtain laboratory studies, including blood counts - Genital and rectal examination to assess for source of bleeding - Assess availability of GI or general surgery for possible colonoscopy - Consider admission for GI prep and colonoscopy if ongoing bleeding or low hemoglobin ED Course: 84-year-old female presented with a two-week history of intermittent hematuria and new-onset rectal bleeding. Initial evaluation included laboratory studies to assess blood counts and a genital and rectal examination to identify the source of bleeding. The plan involved assessing the availability of GI or general surgery for a possible colonoscopy and considering admission for GI prep and colonoscopy if ongoing bleeding or low hemoglobin was detected. Differential Diagnoses: Rectal bleeding, Recent hematuria, Colorectal cancer, Diverticular bleeding, Angiodysplasia, Hemorrhoids, Lower gastrointestinal bleeding secondary to anticoagulation or coagulopathy Complexity of Problems Addressed: The patient presents with rectal bleeding characterized by bright red blood clots and darker dried blood, alongside a history of intermittent hematuria. These symptoms raise concern for potentially serious conditions such as gastrointestinal bleeding or malignancy, which are undiagnosed new problems with uncertain prognosis. Additionally, the patient's cardiac history, including a weak heart valve, increases the risk of complications during diagnostic procedures like colonoscopy, further elevating the complexity of management. The intermittent lightheadedness and decreased energy may suggest anemia or hemodynamic instability, which could pose a threat to life if not promptly addressed. Patient is seen in the emergency department in fortunately had reassuring lab work, no clear acute drop in hemoglobin, no further episodes of bloody bowel movements. Patient is not tachycardic, hypotensive or in acute distress. She did have positive guaiac on exam but no active bleeding. Discussed the case with surgeon who did not believe patient warranted admission at this time given stable hemodynamics, no clear drop in hemoglobin no active bleeding. Given patient is elderly however and lives on [address] I was concerned that patient would need more expeditious colonoscopy, surgery still does not believe patient requires admission however we will set her up for expeditious outpatient follow up, I called the [facility] and she is now scheduled for a colonoscopy on the . We had extensive discussions about return precautions to the emergency department in the case of worsening bleeding symptoms of anemia or other concerning symptoms. Discharge Plan Departure Patient Disposition: Home Clinical Impression: Acute lower gastrointestinal bleeding Instructions: Gastrointestinal Bleeding Activity Restrictions/Additional Instructions: You were seen in the emergency department with concerns for potential lower GI bleeding and you do need a colonoscopy, fortunately your lab work and vital signs were well enough that the surgeon did not believe that you needed admission for this to be done. I have called on your behalf and set you up with a colonoscopy for this Tuesday on the . Please call the [facility] as soon as possible in order to help arrange for this but they also should be calling you for a pre colonoscopy questionnaire and instructions. colonoscopy schedule for tuesdayFebruary 08, Office will call tomorrow tuesdayFebruary 06 to get pt. information and questionnaire, OR will call February 07 to set up time for surgery. [phone] In the meantime if you have worsening bleeding, feel like he may pass out significant abdominal pain please return to the emergency department as you will likely need to get this done on a more emergent basis. Prescriptions: No Action PreserVision AREDS-2 1 EACH capsule 1 ea PO BID Qty: 0 calcium carbonate-vitamin D3 [Oyster Shell Calcium-Vit D3] 1,250 MG/200 IU tablet 1 tab PO Q DAY Qty: 0 metoprolol succinate 100 MG tablet extended release 24 hr 100 mg PO Q DAY Qty: 90 3RF metformin 500 mg Tablet 500 mg PO BID amlodipine 5 mg Tablet 5 mg PO DAILY ezetimibe 10 mg Tablet 10 mg PO BEDTIME clobetasol 0.05 % cream 1 greg Topical QDAYP PRN (Reason: Psoriasis) acetaminophen 325 mg Tablet 325 mg PO Q4-6H PRN (Reason: Pain) aspirin 81 mg Tablet,Delayed Release (Dr/Ec) 81 mg PO BID Qty: 1 0RF Rx Instructions: Take twice a day for 6 weeks to prevent blood clots. tramadol 50 mg tablet 50 mg PO Q4-6H PRN (Reason: pain) Qty: 90 0RF Referrals: [facility] [Other] Nichole Bonner MD [Primary Care Provider, Family Practice] Stand Alone Forms: Patient Portal/API
[2025-02-05 11:01] LABS: Prothrombin Time 11.7 SECONDS (9.4-12.5)
--- NOTE | 2025-02-05 11:02 | EKG_ITS ---
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
[2025-02-05 11:03] LABS: PTT Partial Thromboplastin Tim 31 SECONDS (25.1-36.5)
[2025-02-05 11:06] LABS: Alanine Aminotransferase 15 IU/L (<35); Albumin 4.1 g/dL (3.5-5.0); Albumin Globulin Ratio 1.5 (1.0-2.8); Alkaline Phosphatase 60 U/L (38-126); Aspartate Aminotransferase 19 IU/L (14-36); BUN Creatinine Ratio 19.4 (6-22); Bilirubin Total 0.6 mg/dL (0.2-1.3); Blood Urea Nitrogen 24 mg/dL (7-17); Calcium 9.2 mg/dL (8.4-10.2); Carbon Dioxide 25 mmol/L (22-32); Chloride 105 mmol/L (98-107); Estimated Glomerular Filt Rate 43 mL/min (>60); Globulin 2.8 g/dL (1.7-4.1); Glucose 119 mg/dL (70-99); HEMOLYSIS < 15 (0-50); Potassium 4.6 mmol/L (3.4-5.1); Sodium 139 mmol/L (137-145); Total Protein 6.9 g/dL (6.3-8.2)
== END 2025-02-05 14:16 | disposition home or self-care (01) ==
PROVIDERS: Emergency Provider Emergency Medicine; Family Provider Family Medicine; PCP Family Medicine
DX: K62.5 Hemorrhage of anus and rectum (principal); R31.9 Hematuria, unspecified; R42 Dizziness and giddiness; I38 Endocarditis, valve unspecified
CPT/HCPCS: 36415; 80053; 82272; 85025; 85610; 85730; 86850; 86900; 86901; 93005; 99283; 99284

== ENCOUNTER 2025-02-08 11:14 | Day surgery (SDC) | payer MEDICARE, SELFPAY ==
[2021-12-08 15:27] VITALS: BMI 24.5
--- NOTE | 2025-02-08 | PATH_ITS ---
[facility] Accession Number: [id number] No. of containers..03 Tissue . 01 Material submitted: . PART A: colon - CECAL POLYP PART B: colon - COLON, ASCENDING POLYP PART C: colon - COLON, TRANSVERSE POLYP . 01 Diagnosis: A. CECAL POLYP: Tubular adenoma. . B. ASCENDING COLON POLYP: Tubular adenoma. . C. TRANSVERSE COLON POLYP: Tubular adenoma. [facility] 02/14/2025 1146 Local . 01 Electronically signed: . Janelle Santa MD, Pathologist NPI- [id number] . 01 Gross description: . Part A: CECAL POLYP: Received in formalin are multiple fragment(s) of villalobos, soft tissue measuring 0.1 x 0.1 x 0.1 cm to 1.0 x 0.6 x 0.5 cm submitted entirely in 1 cassette(s) Part B: COLON, ASCENDING POLYP: Received in formalin are multiple fragment(s) of villalobos, soft tissue measuring 0.1 x 0.1 x 0.1 cm to 0.5 x 0.2 x 0.2 cm submitted entirely in 1 cassette(s) Part C: COLON, TRANSVERSE POLYP: Received in formalin is 1 fragment of villalobos soft tissue measuring 0.8 x 0.8 x 0.5 cm. Specimen is sectioned and submitted in its entirety in 1 cassette. /MANINDER 02/12/2025 1852 Local . 01 Pathologist provided ICD-10: D12.0, D12.2, D12.3 . 01 CPT . 999874, [id number] Specimen Comment: A courtesy copy of this report has been sent to [facility] Performed at: [address] [address], [place], [place] [id number] MD Bronson Hilario MD Phone: [phone]
[2025-02-08 11:43] VITALS: BP 150/56; PULSE 68; RESP 16; TEMP 36.6; O2SAT 99
[2025-02-08] MEDS: LACTATED RINGERS 1,000 ML 42 ML IV (11:46)
--- NOTE | 2025-02-08 11:52 | PM.HP.IH.1 ---
History of Present Illness History of Present Illness Date Patient Seen: 02/08/25 Time Patient Seen: 12:00 Chief complaint: Colonoscopy Narrative: 84-year-old female with aortic stenosis presented to the ED complaining of dizziness and rectal bleeding. Her H&H had changed very little from prior values. The volume of bleeding was small and self-limited. It subsequently stopped. She is referred for screening colonoscopy. [facility] Medical History (Updated 02/05/25 @ 13:18 by ) Skin cancer History of Mohs micrographic surgery for skin cancer Osteoarthritis Macular degeneration of both eyes Breast cancer, left (2016) Surgical History (Updated 12/09/21 @ 07:42 by Melissa Perdomo PA-C) Hx of tonsillectomy Hx of bilateral cataract extraction Hx of left mastectomy (2016) History of arthroplasty of right knee (~2015) Family History (Updated 01/01/17 @ 00:00 by Conversion Provider) Brother Heart disease Father Heart disease Social History household members: spouse Smoking Status: Former smoker alcohol intake: current Meds Home Medications and Allergies Home Medications ?Medication ?Instructions ?Recorded ?Confirmed ?Type calcium 500 mg (as 1 tab PO Q DAY ##0 06/08/16 02/08/25 History carbonate)-vitamin D3 5 mcg (200 unit) tablet (Oyster Shell Calcium-Vitamin D3) vit C 250 mg-vit E 90 mg-zinc 40 1 ea PO BID ##0 06/08/16 02/08/25 History mg-copper 1 [id number]-amupug-mcbltx capsule (PreserVision AREDS-2) acetaminophen 325 mg tablet 325 mg PO Q4-6H PRN Pain 12/03/21 02/08/25 History amlodipine 5 mg tablet 5 mg PO DAILY 12/03/21 02/08/25 History clobetasol 0.05 % topical cream 1 greg topical QDAYP PRN Psoriasis 12/03/21 02/08/25 History ezetimibe 10 mg tablet 10 mg PO BEDTIME 12/03/21 02/08/25 History metformin 500 mg tablet 500 mg PO BID 12/03/21 02/08/25 History Held on 02/08/25. Instructions: Provider's Order aspirin 81 mg tablet,delayed 81 mg PO BID #1 tab 12/09/21 02/08/25 Rx release carvedilol 12.5 mg tablet 12.5 mg PO BID 02/08/25 02/08/25 History Allergies Allergy/AdvReac Type Severity Reaction Status Date / Time pravastatin Allergy Intermediate HIVES Verified 02/05/25 10:31 lisinopril Allergy Mild pruritis, Verified 02/05/25 10:31 rash hydrochlorothiazide AdvReac Mild SUN Verified 02/05/25 10:31 SENSITIVITY Review of Systems Review of Systems Narrative: Comprehensive review of systems negative to direct questioning with the exception of the previously mentioned chronic conditions Exam Vital Signs (past 8 hours): - 02/08/25 11:43 Temperature 97.8 F Pulse Rate 68 Respiratory Rate 16 Blood Pressure 150/56 H Pulse Oximetry 99 Oxygen Delivery Method Room Air Oxygen Delivery Method Room Air Narrative Exam Narrative: Head is normocephalic and atraumatic. Neck is supple. Back is without CVA or spinous process tenderness. Lungs are clear to auscultation. Chest is symmetric nontender with normal inspiratory and expiratory excursion. Heart has a regular rate and rhythm with a blowing holosystolic 3 of 6 murmur at the left sternal border. Abdomen is soft nontender with normal bowel sounds. Neurological exam is nonfocal. Extremities manifests full range of motion. Assessment & Plan Assessment and plan (1) Acute lower gastrointestinal bleeding: Status: Acute Plan Self-limited, hemodynamically insignificant episode of hematochezia. I have recommended colonoscopy. Alternatives, risks and benefits were discussed in detail. Patient desires to proceed as I have outlined. Time-Based Coding :: [TOTAL MINUTES] spent with patient and on the chart (including review of chart, obtaining history, exam, reviewing outside data, placing orders, documenting exam and treatment plan, and counseling patient) on [DATE]. [employer] Specialist Document charge(s): Yes
--- NOTE | 2025-02-08 12:36 | PM.OP.COLON ---
Operative Date/Time/Diagnoses Date of procedure: 02/08/25 Time of procedure: 12:00 Pre-op diagnosis: Hematochezia Post-op diagnosis: same Procedure & Clinicians Study performed: Colonoscopy with biopsy Same procedure as scheduled: Yes Indications: Hematochezia Surgeon: Lester Ellis Procedure Notes Procedure in detail: Patient was transported to the endo suite and was placed on the table in supine position. IV sedation was administered and the patient was rolled to the left lateral decubitus position. A 2 m flexible fiberoptic colonoscope was passed transanally into the rectum and around the cecum under direct endoscopic vision. Cecum was identified at the ileocecal valve. A an 8 mm pedunculated polyp was removed from the ileocecal valve with a hot biopsy forceps. Cecum was otherwise without evidence of mucosal abnormality. Ascending colon was remarkable in appearance for 3 or 4 mm sessile polyp which was also removed with the hot snare. The ileocecal valve and ascending colonic polyps were recovered and Lukens traps. Hepatic flexure was normal in appearance. A 1-1.2 cm right transverse colon polyp was identified and this was managed identically. The remainder of the transverse colon and splenic flexures were without evidence of mucosal abnormality. The descending colon was remarkable in appearance for multiple widely scattered diverticuli as was the sigmoid colon. There were no other mucosal abnormalities identified. The rectum was normal as the scope was withdrawn. There was no indication of active bleeding or evidence of any potential source. Internal hemorrhoids were present but unremarkable. Patient tolerated the procedure well and was transported to the recovery room in good condition. Scope withdrawal time: 1233 Findings: divertiulosis and polyp(s) Specimen(s): other (8 mm cecal polyp. 3 mm ascending colon polyp. 1 cm transverse colon polyp) Complications: none Impression: No indication of active bleeding. Post-procedure Recommendations: Colonoscopy in 3 years Plan for aftercare: Discharge to home when awake and alert Follow up: weeks (2) Disposition: PACU
[2025-02-08 12:41] VITALS: BP 118/33; PULSE 63; RESP 20; TEMP 36.2; O2SAT 99
[2025-02-08 12:46] VITALS: BP 139/45; PULSE 59; RESP 22; O2SAT 99
[2025-02-08 13:01] VITALS: BP 140/51; PULSE 58; RESP 16; TEMP 36.3; O2SAT 99
== END 2025-02-08 13:20 | disposition home or self-care (01) ==
PROVIDERS: Family Provider Family Medicine; PCP Family Medicine; Referring Provider Surgery; Visit Provider Surgery
PROC: 0DJD8ZZ Inspection of Lower Intestinal Tract, Via Natural or Artificial Opening Endoscopic (ICD-10-PCS; CPT 45378; principal; 2025-02-08 12:15)
DX: K92.1 Melena (principal); D12.0 Benign neoplasm of cecum; D12.2 Benign neoplasm of ascending colon; D12.3 Benign neoplasm of transverse colon; K57.30 Diverticulosis of large intestine without perforation or abscess without bleeding; K64.8 Other hemorrhoids; J44.9 Chronic obstructive pulmonary disease, unspecified; I35.0 Nonrheumatic aortic (valve) stenosis; I10 Essential (primary) hypertension; I25.10 Atherosclerotic heart disease of native coronary artery without angina pectoris; E11.9 Type 2 diabetes mellitus without complications; Z79.84 Long term (current) use of oral hypoglycemic drugs; Z85.3 Personal history of malignant neoplasm of breast; Z90.12 Acquired absence of left breast and nipple; Z87.891 Personal history of nicotine dependence; Z85.828 Personal history of other malignant neoplasm of skin
CPT/HCPCS: 45385; 45384; J2704

== ENCOUNTER → 2025-06-11 07:36 | Outpatient (CLI) | payer MEDICARE, SELFPAY ==
[2021-12-08 15:27] VITALS: BMI 24.5
[2025-06-11 08:54] LABS: Alanine Aminotransferase 11 IU/L (<35); Albumin 3.9 g/dL (3.5-5.0); Albumin Globulin Ratio 1.4 (1.0-2.8); Alkaline Phosphatase 65 U/L (38-126); Blood Urea Nitrogen 25 mg/dL (7-17); Calcium 9.9 mg/dL (8.4-10.2); Carbon Dioxide 24 mmol/L (22-32); Chloride 107 mmol/L (98-107); Cholesterol 99 mg/dL (140-199); Estimated Glomerular Filt Rate 43 mL/min (>60); Globulin 2.7 g/dL (1.7-4.1); Glucose 120 mg/dL (70-99); HDL Cholesterol 47 mg/dL (40-60); HEMOLYSIS < 15 (0-50); Potassium 4.6 mmol/L (3.4-5.1); Sodium 139 mmol/L (137-145); Total Protein 6.6 g/dL (6.3-8.2); Triglycerides 129 mg/dL (35-150)
== END ==
PROVIDERS: Family Provider Family Medicine; PCP Physician Assistant; Referring Provider Physician Assistant; Visit Provider Internal Medicine Cardiovascular Disease
DX: E78.5 Hyperlipidemia, unspecified (principal)
CPT/HCPCS: 36415; 80053; 80061